=== PATIENT | male | born 1965 | race Caucasian/White ===

== ENCOUNTER → 2018-12-27 | Outpatient (CLI) | payer BC ==
[2018-12-27 11:24] LABS: ALANINE AMINOTRANSFERASE 62 U/L (21-72); ALBUMIN 4.5 g/dL (3.5-5.0); ALKALINE PHOSPHATASE 111 U/L (38-126); ANION GAP 13 (5-19); ASPARTATE AMINO TRANSFERASE 57 U/L (17-59); BILIRUBIN,DIRECT 0.4 mg/dL (0.0-0.4); BILIRUBIN,TOTAL 0.6 mg/dL (0.2-1.3); BLOOD UREA NITROGEN 15 mg/dL (7-20); CALCIUM 9.9 mg/dL (8.4-10.2); CARBON DIOXIDE 19 mmol/L (22-30); CHLORIDE 105 mmol/L (98-107); GLUCOSE 127 mg/dL (75-110); POTASSIUM 4.5 mmol/L (3.6-5.0); SODIUM 136.6 mmol/L (137-145); TOTAL PROTEIN 7.5 g/dL (6.3-8.2)
== END ==
LOC: OD 09:19
PROVIDERS: ATTEND Surgery
DX: E03.9 Hypothyroidism, unspecified (principal); E78.00 Pure hypercholesterolemia, unspecified
CPT/HCPCS: 36415; 80053; 84443

== ENCOUNTER → 2019-01-16 | Outpatient (CLI) | payer BC | LOC: OD 15:21 | PROVIDERS: ATTEND Otolaryngology | DX: J30.9 Allergic rhinitis, unspecified (principal) | CPT/HCPCS: 36415; 82785; 86003 ==

== ENCOUNTER 2019-08-04 01:12 | Emergency (ER) | payer BC ==
[2019-08-04] MEDS ORDERED: IBUPROFEN 800 MG TABLET PO ONE (01:37)
--- NOTE | 2019-08-04 01:54 | RADIOLOGY REPORT (SQ) ---
EXAM DESCRIPTION: XR FOOT 3 OR MORE VIEWS COMPLETED DATE/TME: 08/04/2019 01:17 CLINICAL HISTORY: 53 years, Male, pain COMPARISON: None. NUMBER OF VIEWS: Three TECHNIQUE: Three views of the right foot LIMITATIONS: None. FINDINGS: There is no acute fracture, dislocation, erosion, or periosteal reaction. No large soft tissue swelling. There is a small plantar calcaneal spur. No radiopaque foreign body. IMPRESSION: No acute fracture or dislocation copyright 2010 [employer]- All Rights Reserved
--- NOTE | 2019-08-04 02:42 | ER Document Report ---
HPI - HPI Patient complains to provider of: right foot pain Time Seen by Provider: 08/04/19 02:16 Pain Level: 3 Context: Patient is a 53-year-old male presents to the emergency department for an injury to his right foot. Patient voices he accidentally hit his right foot against a trunk. Patient voices he "heard a pop." Has had pain and swelling to the right fourth toe. Patient denies history of diabetes. Patient denies any other injury. - CONSTITUTIONAL Constitutional: DENIES: Fever, Chills - REPRODUCTIVE Reproductive: DENIES: : - DERM Skin Color: Normal Past Medical History - General Information source: Patient - Social History Smoking Status: Never Smoker Chew tobacco use (# tins/day): No Frequency of alcohol use: Rare Drug Abuse: None Family History: Reviewed & Not Pertinent Patient has suicidal ideation: No Patient has homicidal ideation: No Vertical Provider Document - CONSTITUTIONAL Agree With Documented VS: Yes Notes: GENERAL: Alert, interacts well. No acute distress. HEAD: Normocephalic, atraumatic. EYES: Pupils equal, round, and reactive to light. Extraocular movements intact. ENT: Oral mucosa moist, tongue midline. NECK: Full range of motion. Supple. Trachea midline. LUNGS: Clear to auscultation bilaterally, no wheezes, rales, or rhonchi. No respiratory distress. HEART: Regular rate and rhythm. No murmur ABDOMEN: Soft, non-tender. Non-distended. Bowel sounds present in all 4 quadrants. EXTREMITIES: Moves all 4 extremities spontaneously. No edema, normal radial and dorsalis pedis pulses bilaterally. Pain and ecchymosis noted right fourth toe dorsally. Pain at the base of the right fourth toe as well. Capillary refill less than 2 seconds distally all 5 fingers on the right foot. No pain upon palpation or movement of right ankle, right knee. BACK: no cervical, thoracic, lumbar midline tenderness. No saddle anesthesia, normal distal neurovascular exam. NEUROLOGICAL: Alert and oriented x3. Normal speech. cranial nerves II through XII grossly intact PSYCH: Normal affect, normal mood. SKIN: Warm, dry, normal turgor. - INFECTION CONTROL TRAVEL OUTSIDE OF THE [place] IN LAST 30 DAYS: No Course - Re-evaluation Re-evalutation: Foot X-Ray 08/04/19 01:17 IMPRESSION: No acute fracture or dislocation copyright 2010 [employer]- All Rights Reserved Discussed with patient negative x-rays in the emergency department. Discussed use of surgical boot. Also discussed use of crutches. Patient wishes to decline crutches at this time. Also discussed follow-up with primary care provider and orthopedics for repeat imaging as needed. Patient voices understanding, stable for discharge. - Vital Signs Vital signs: Temp Pulse Resp BP Pulse Ox 98.0 F 85 18 118/63 96 08/04/19 01:21 08/04/19 01:21 08/04/19 01:21 08/04/19 01:21 08/04/19 01:21 Discharge - Discharge Clinical Impression: Right foot injury Qualifiers: Encounter type: initial encounter Qualified Code(s): S99.921A - Unspecified injury of right foot, initial encounter Condition: Stable Disposition: HOME, SELF-CARE Additional Instructions: As we discussed you have been seen and treated in the ED for an injury to your right foot. Your x-rays revealed no signs of broken bones. Please make sure you take [id number] Tylenol or Motrin for generalized pain. Please try to stay off your right lower extremity and ice it as needed. Please follow-up with your primary care provider in the next 12 to 24 hours. Please follow-up with orthopedics, phone numbers will be provided. You may need reimaging of your right lower extremity. Please follow-up with phone numbers given. Return to the emergency room for any concerns. Forms: Return to Work Referrals: RALEIGH MANCILLA MD [ACTIVE PROVISIONAL STAFF] - Follow up as needed VEL DE PAZ DO [NO LOCAL MD] - Follow up as needed
[2019-08-04 02:55] VITALS: BP 120/64
== END 2019-08-04 02:53 | disposition home or self-care (01) ==
LOC: ER 01:12
DX: S90.121A Contusion of right lesser toe(s) without damage to nail, initial encounter (principal); M79.674 Pain in right toe(s); W22.8XXA Striking against or struck by other objects, initial encounter
CPT/HCPCS: 99283

== ENCOUNTER 2019-08-19 17:08 | Emergency (ER) | payer OTHER, BC ==
[2019-08-19 17:15] VITALS: BP 129/72
[2019-08-19] MEDS ORDERED: DIPH/PERTUSS(ACELL)/TETANUS VAC/PF 0.5 ML SYR (>=10YO) IM ONE (17:24)
--- NOTE | 2019-08-19 17:24 | ER Document Report ---
ED Medical Screen (RME) - General Chief Complaint: Laceration Stated Complaint: LACERATION/RIGHT INDEX FINGER Time Seen by Provider: 08/19/19 17:19 Primary Care Provider: TONIO FERNÁNDEZ DO [Primary Care Provider] - Follow up as needed Mode of Arrival: Ambulatory Information source: Patient Notes: 53-year-old male presented to ED for laceration to the right index finger with a 15 blade that was dirty had already been used on a patient. He does need a tetanus immunization. Already been seen by the supervisory civil engineer. Labs have already been drawn. Have a positive titer for hep B. Does not smoke does not use drugs. 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 Laceration was at 325 today I have greeted and performed a rapid initial assessment of this patient. A com prehensive ED assessment and evaluation of the patient, analysis of test results and completion of medical decision making process will be conducted by an additional ED providers. TRAVEL OUTSIDE OF THE [place] IN LAST 30 DAYS: No - Related Data Allergies/Adverse Reactions: No Known Allergies Allergy (Verified 08/19/19 17:14) Physical Exam - Vital signs Vitals: Temp Pulse Resp BP Pulse Ox 98.2 F 80 18 129/72 H 97 08/19/19 17:12 08/19/19 17:12 08/19/19 17:12 08/19/19 17:12 08/19/19 17:12 Course - Vital Signs Vital signs: Temp Pulse Resp BP Pulse Ox 98.2 F 80 18 129/72 H 97 08/19/19 17:12 08/19/19 17:12 08/19/19 17:12 08/19/19 17:12 08/19/19 17:12 Doctor's Discharge - Discharge Referrals: TONIO FERNÁNDEZ DO [Primary Care Provider] - Follow up as needed
[2019-08-19] MEDS ORDERED: LIDOCAINE 2% INJ (20 MG/ML) 20 ML MDV ONE (17:59)
[2019-08-19] MEDS ORDERED: LIDOCAINE 1% INJ-PF (10 MG/ML) 30 ML SDV INJ ONE (17:59)
[2019-08-19] MEDS ORDERED: CEPHALEXIN 500 MG CAPSULE PO ONE (18:11)
--- NOTE | 2019-08-19 19:04 | ER Document Report ---
ED General - General Chief Complaint: Laceration Stated Complaint: LACERATION/RIGHT INDEX FINGER Time Seen by Provider: 08/19/19 17:19 Primary Care Provider: TONIO FERNÁNDEZ DO [ASSOCIATE] - Follow up as needed Mode of Arrival: Ambulatory TRAVEL OUTSIDE OF THE [place] IN LAST 30 DAYS: No - Related Data Allergies/Adverse Reactions: No Known Allergies Allergy (Verified 08/19/19 17:14) Home Medications: Lipitor. Synthroid Past Medical History - General Information source: Patient - Social History Smoking Status: Never Smoker Chew tobacco use (# tins/day): No Frequency of alcohol use: None Drug Abuse: None Family History: Reviewed & Not Pertinent Patient has suicidal ideation: No Patient has homicidal ideation: No Physical Exam - Vital signs Vitals: Temp Pulse Resp BP Pulse Ox 98.2 F 80 18 129/72 H 97 08/19/19 17:12 08/19/19 17:12 08/19/19 17:12 08/19/19 17:12 08/19/19 17:12 PHYSICAL EXAMINATION: GENERAL: Well-appearing, well-nourished and in no acute distress. HEAD: Atraumatic, normocephalic. EYES: Pupils equal round and reactive to light, extraocular movements intact, sclera anicteric, conjunctiva are normal. ENT: nares patent, oropharynx clear without exudates. Moist mucous membranes. NECK: Normal range of motion, supple without lymphadenopathy LUNGS: Breath sounds clear to auscultation bilaterally and equal. No wheezes rales or rhonchi. HEART: Regular rate and rhythm without murmurs ABDOMEN: Soft, nontender, normoactive bowel sounds. No guarding, no rebound. No masses appreciated. EXTREMITIES: Normal range of motion, no pitting or edema. No cyanosis. NEUROLOGICAL: No focal neurological deficits. Moves all extremities spontaneously and on command. PSYCH: Normal mood, normal affect. SKIN: Warm, Dry, normal turgor, no rashes or lesions noted. - Notes Notes: Patient presents emergency department after sustaining a stab wound to his right index finger the operating room from a #15 blade scalpel not noticed any blood in the scalpel. The procedure was almost over his had persistent bleeding from the site presents for evaluation. Has been seen by employee health with routine laboratories obtained discussed exposure prophylaxis with him Past medical history is unremarkable tetanus is not up-to-date history occasional alcohol Physical exam vital signs noted he is in no acute distress he is [id number] there is a problem focused exam limited to his right upper extremity Small puncture wound to the volar tip of the second finger some minimal bleeding. No tenderness in the area there is no subungual hematoma. Flexors are intact patient is intact to light touch Procedure little block with lidocaine. The wound was prepped x3 with Hibiclens. Underwent high-pressure irrigation was explored and superficial. Stitches x2 of Prolene were inserted. Bleeding was controlled and bandage applied Course - Vital Signs Vital signs: Temp Pulse Resp BP Pulse Ox 98.2 F 80 18 129/72 H 97 08/19/19 17:12 08/19/19 17:12 08/19/19 17:12 08/19/19 17:12 08/19/19 17:12 Discharge - Discharge Clinical Impression: Finger laceration Disposition: HOME, SELF-CARE Instructions: Laceration Care (OM) Additional Instructions: You need to have the sutures removed in 10 days Tylenol for pain Prescriptions: Cephalexin Monohydrate [Keflex 500 mg Capsule] 500 mg PO TID 3 Days #9 capsule Forms: Return to Work Referrals: TONIO FERNÁNDEZ DO [ASSOCIATE] - Follow up as needed
== END 2019-08-19 19:12 | disposition home or self-care (01) ==
LOC: ER 17:08
PROC: 0HQFXZZ Repair Right Hand Skin, External Approach (ICD-10-PCS; principal; 2019-08-19)
DX: S61.210A Laceration without foreign body of right index finger without damage to nail, initial encounter (principal); W45.8XXA Other foreign body or object entering through skin, initial encounter; Y99.0 Civilian activity done for income or pay
CPT/HCPCS: 99282; 90471; 90715; 12001; J3490 ×2

== ENCOUNTER → 2020-08-16 | Outpatient (CLI) | payer BC ==
[2020-08-16 09:56] LABS: ALBUMIN 4.1 g/dL (3.5-5.0); ALKALINE PHOSPHATASE 175 U/L (38-126); ANION GAP 11 (5-19); ASPARTATE AMINO TRANSFERASE 76 U/L (17-59); BILIRUBIN,DIRECT 0.2 mg/dL (0.0-0.4); BILIRUBIN,TOTAL 0.6 mg/dL (0.2-1.3); BLOOD UREA NITROGEN 15 mg/dL (7-20); CALCIUM 9.8 mg/dL (8.4-10.2); CARBON DIOXIDE 26 mmol/L (22-30); CHLORIDE 102 mmol/L (98-107); CHOLESTEROL 144.61 mg/dL (0-200); GLUCOSE 134 mg/dL (75-110); POTASSIUM 4.8 mmol/L (3.6-5.0); TOTAL PROTEIN 7.3 g/dL (6.3-8.2); TRIGLYCERIDES 110 mg/dL (<150)
[2020-08-16 10:07] LABS: DIRECT LDL 96 mg/dL (<100)
== END ==
LOC: OD 08:46
PROVIDERS: ATTEND Family Medicine
DX: E78.49 Other hyperlipidemia (principal); Z13.1 Encounter for screening for diabetes mellitus; E03.9 Hypothyroidism, unspecified
CPT/HCPCS: 36415; 80053; 80061; 84443

== ENCOUNTER → 2020-09-13 | Outpatient (CLI) | payer BC ==
[2020-09-13 14:08] VITALS: BP 116/78
--- NOTE | 2020-09-13 14:08 | ER RDC ASSESSMENT REPORT ---
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 [employer] - Symptoms Subjective Fever([place] feverish): No Chills: No Muscule Aches: Yes Runny Nose: Yes Sore Throat: Yes Cough (New or worsening chronic cough): No Shortness of breath: No Nausea or Vomiting: No Headache: Yes Abdominal Pain: No Diarrhea(3 or more loose stools in last 24 hours): No - Do you have any of the following Chronic lung disease: Asthma or emphysema or COPD: No Cystic Fibrosis: No Diabetes: No High Blood Pressure: No Cardiovascular Disease: Yes Cardiovascular Disease Comment: Elevated cholesterol Chronic Kidney Disease: No Chronic Liver Disease: No Chronic blood disorder like Sickle Cell Disease: No Weak immune system due to disease or medication: No Neurologic condition that limits movement: No Developmental delay - Moderate to Severe: No Recent (within past 2 weeks) or current : No Morbid Obesity (>100 pounds over ideal weight): No Obesity Comment: Height 6 feet 0 inches weight 265 pounds - Objective Temperature: 98.7 F Pulse Rate: 91 Respiratory Rate: 16 Blood Pressure: 116/78 O2 Sat by Pulse Oximetry: 95 Objective: Given above, testing performed: If Testing Performed: Test Specimen Type Sent to General - General Information source: Patient Notes: Patient here at [facility] for Covid testing. 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 Patient reports was exposed to patient they did surgery on last Sunday . Reports wearing PPE according to protocol. Started to have symptoms over the weekend worsening. reports symptoms of muscle aches runny nose and headache. Patient sees Dr. Hartley his PCP and will follow up with her later today. - Related Data Allergies/Adverse Reactions: No Known Allergies Allergy (Verified 08/19/19 17:14) Past Medical History - General Information source: Patient - Social History Smoking Status: Former Smoker - Quit 6 years ago Family History: Reviewed & Not Pertinent Physical Exam - General General appearance: Appears well, Alert In distress: None Notes: PHYSICAL EXAMINATION: GENERAL: Well-appearing and in no acute distress. HEAD: Atraumatic, normocephalic. EYES: sclera anicteric, conjunctiva are normal. ENT: nares patent. Moist mucous membranes. NECK: Normal range of motion, supple without lymphadenopathy LUNGS: CTAB and equal. No wheezes rales or rhonchi. Respirations even and unlabored lung sounds clear HEART: Regular rate and rhythm without murmurs ABDOMEN: Soft, nontender, normal bowel sounds, no guarding. EXTREMITIES: Normal range of motion, no pitting edema. No cyanosis. NEUROLOGICAL: Cranial nerves grossly intact. Normal speech. Normal gait. PSYCH: Normal mood, normal affect. SKIN: Warm, Dry, normal turgor, no rashes or lesions noted Diagnostic Results Laboratory Results: Informed of negative rapid strep and negative rapid flu results. Pending strep culture pending Covid testing results. Patient provided instructions regarding Covid to include: As a person under investigation for Covid 19, the [facility] of Health and Human Services, division of public health advises you to adhere to the following guidance until your test results are reported to you. If your test result is positive, you will receive additional information from your provider and your local health department at that time. Remain at home until you are cleared by the health provider or public health authorities. Keep a log of visitors to your home, notify any visitors to your home of your isolation status. If you plan to move to a new address or leave the [facility], notify the local health department in your County. Call your doctor or seek care if you have an urgent medical need. Before seeking medical care, call ahead to get instructions from the provider before arriving at the medical office clinic or hospital. Notify them that you are being tested for the virus that causes Covid 19 so that arrangements can be made, as necessary, to prevent transmission to others in the healthcare setting. Next, notify the local health department in your county. If a medical emergency arises and you need to call 911, inform the first responders that you are being tested for the virus that causes Covid 19. Next, notify the local health department in your county. Patient Education/Counseling Counseling/Education: Patient presents with upper respiratory symptoms worrisome for possible Covid 19. Patient does not have emergency worring symptoms such as difficulty breathing, shortness of breath, chest pain, pressure, confusion or cyanosis. Patient appears suitable for discharge. Patient instructed to follow-up with PCP Dr. Hartley today. To ED for persistent or worsening symptoms patient's vital signs are stable and patient is nontoxic in appearance. Good return precautions have been discussed with patient, patient verbalized understanding and is agreeable with discharge plan of care at this time. RDC Discharge - Discharge Condition: Stable Disposition: Home; Selfcare
[2020-09-13 15:02] LABS: A TYPE INFLUENZA AG NEGATIVE (NEGATIVE); B INFLUENZA AG NEGATIVE (NEGATIVE)
== END ==
LOC: RDC 12:59
PROVIDERS: ATTEND Nurse Practitioner Family
DX: U07.1 COVID-19 (principal); M79.10 Myalgia, unspecified site; R09.89 Other specified symptoms and signs involving the circulatory and respiratory systems; J02.9 Acute pharyngitis, unspecified; E78.00 Pure hypercholesterolemia, unspecified; R51.9 Headache, unspecified; Z87.891 Personal history of nicotine dependence
CPT/HCPCS: 87070; 87880; 87804; 99201; 99211; U0003; C9803; 87635

== ENCOUNTER → 2020-11-06 | Outpatient (CLI) | payer BC ==
[~2020-11-06] MED LIST: COVID-19 VACCINE (PFIZER)/PF 30 MCG/0.3 ML VIAL IM ONE; EPINEPHRINE INJ/PF 1 MG/1 ML AMPULE IM PRN
--- OUTSIDE RECORDS SUMMARY | 2020-11-09 10:14 | XMS REPORT ---
:1965 Author Organization [facility] Address [facility] [place] [address] [place] [id number] Care Team Providers Name Role Phone Unavailable Unavailable Unavailable Allergies, Adverse Reactions, Alerts This patient has no known allergies or adverse reactions. Medications This patient has no known medications. Problems This patient has no known problems. Procedures This patient has no known procedures. Results Test Description Test Time Test Comments Text Results Atomic Results Result Comments SARS-CoV-2 RNA Resp Ql PETER+probe 2020-09-15 00:00:00 Test Item Value Reference Range Comments SARS-CoV-2 RNA Resp Ql PETER+probe Detected [facility] Case ID: (test code = [id number]) [id number] Social History This patient has no known social history. Vital Signs This patient has no known vital signs.
== END ==
LOC: EMPHEALTH 10:05
PROVIDERS: ATTEND Internal Medicine
DX: Z23 Encounter for immunization (principal)
CPT/HCPCS: 91300